=== PATIENT | female | born 1980 | race Caucasian/White ===

== ENCOUNTER → 2021-12-18 | Outpatient (CLI) | payer OTHER ==
[~2021-12-18] MED LIST: MUCINEX600 MG PO; TESSALON PERLE100 MG PO
== END ==
LOC: KOH-I 08:53
DX: J44.1 Chronic obstructive pulmonary disease with (acute) exacerbation (principal)
CPT/HCPCS: 71046

== ENCOUNTER → 2022-03-15 | Outpatient (CLI) | payer OTHER | LOC: CT 03-06 10:30 | DX: R10.13 Epigastric pain (principal); K43.9 Ventral hernia without obstruction or gangrene | CPT/HCPCS: Q9967 ==